=== PATIENT | female | born 1990 | race Caucasian/White ===

== ENCOUNTER 2016-04-26 16:00 | Emergency (ER) | payer SELFPAY ==
[2016-04-26 16:19] VITALS: BMI 42.0
--- NOTE | 2016-04-26 19:03 | EDPRACDOC ---
- General Information Chief Complaint: Vaginal Bleeding Stated Complaint: VAGINAL BLEEDIN PREG Time Seen by Provider: 04/26/16 18:52 Information Source: Patient Home Medications: Home Medications Clonazepam [Klonopin] 2 mg PO TID PRN 02/03/13 Meloxicam [Mobic] 7.5 mg PO DAILY PRN 04/26/16 Allergies/Adverse Reactions: Allergies Allergy/AdvReac Type Severity Reaction Status Date / Time Penicillins Allergy Severe Hives* Verified 04/26/16 16:19 tramadol Allergy Nausea/Vomi Verified 04/26/16 16:19 ting RANDEX COUGH MED Allergy Hives* Uncoded 04/26/16 16:19 - History of Present Illness Onset: YEST HPI: Pt 5 weeks preg c/o vaginal bleeding, abdo pain, N/V starting yesterday. U/S NEG for IUP. Pt has used same pad all day today. Rhogam shot with prior . Blood type o-. Denies fever, cp, sob. LMP Mar 23. Med hx = scoliosis. Surgical hx = kan. c section. Description: Reports: Spontaneous Location: Reports: Internal Vagina Relevant History: Reports: None : 2 Para: 1 Last Menstrual Period: Mar 23 Blood Type: O- Pain Severity: None Vaginal Bleeding Description: Reports: Bright Red # Pads Used in the Last 12/24 Hours: 1 Associated Signs & Symptoms: Reports: Abdominal Pain, Nausea, Vomiting, Vaginal Bleeding ED Past Medical History - History Reviewed Yes Nurses notes reviewed and agree except as marked - Patient Medical History Psychological History: Denies: Depression Surgical History: Reports: Cholecystectomy - Social Medical History Smoking Status: Never smoker EDM Review of Systems - Review of Systems ROS Negative Except as Marked: Yes All systems reviewed and were negative except as marked Gastrointestinal: Nausea, Pain, Vomiting Genitourinary: , Vaginal Bleeding - Physical Exam Constitutional: No apparent distress, Alert Oriented to: Time, Person, Place Last recorded Vital Signs: Last Vital Signs Temp 98.8 F 04/26/16 16:19 Pulse 128 H 04/26/16 16:19 Resp 18 04/26/16 16:19 BP 140/64 04/26/16 16:19 Pulse Ox 97 04/26/16 16:19 Oxygen Pulse Oxygen Saturation 97 O2 Device Oxygen Flow Rate Fraction of Inspired Oxygen ( FIO2) - HEENT Head: Normal Eye Exam: negative: Conjunctival Injection, Scleral Icterus Oropharynx: negative: Drooling TMJ: Normal Nose: No Symptoms Reported Neck: Normal - Respiratory/Cardiovascular Respiratory: Normal - CTA Cardiovascular: Normal - GI Auscultation: Normal Palpation: Normal Tenderness: Mild, Epigastric - Musculoskeletal Back: Normal Extremities: Normal - Integumentary Skin: Normal - Neurologic Mood Description: Normal Thought: Coherent ED Vaginal Exam External: Normal Vaginal Exam: Blood Vaginal Lesions: None Vaginal Discharge: None Cervix: Blood. negative: Tissue, Tenderness, Open Uterus: Normal size Adnexa: Right, Tenderness - Re-evaluation Re-evaluation 1 Re-evaluation Time: 19:06 (no complaints at this time) - Results 04/26/16 18:55 Decision Time to Discharge: 20:07 - Departure Disposition: Home Condition: Stable Final Diagnosis: Complete Instructions: Dysfunctional Uterine Bleeding (ED) Education/Counseling Given To: Patient, Family Member Education/Counseling Given Regarding: Diagnosis, Treatment, Prognosis, Follow Up Referrals: Johan Gutierrez MD [Primary Care Provider] - One Week Lilliana Pelayo MD [Staff Physician] - One Week Additional Instructions: FOLLOW UP WITH FORMAL WAITER/WAITRESS AND PRIMARY CARE. TAKE MOTRIN FOR PAIN. RETURN TO ED FOR ANY NEW OR WORSENING SYMPTOMS.
[2016-04-26 19:16] LABS: MPV 8.5 fL (7.4-10.4)
[2016-04-26] MEDS ORDERED: RHo(D) IMMUNE GLOBULIN (HUMAN) 300 MCG SYRINGE IM ONE (19:49)
[2016-04-26 20:48] LABS: AMORPHOUS 1+; LEUKOCYTES/URINE NEG (NEGATIVE); NITRITE/URINE NEG (NEGATIVE); URINE OCCULT BLOOD 1+ (NEG/TRACE)
[2016-04-26 23:18] VITALS: BP 114/60; PULSE 118; TEMP 99.8
[2016-04-30 05:41] LABS: CHLAMY BY NUCLEIC ACID AMP Negative (Negative)
[2016-04-30 06:23] LABS: GC BY NUCLEIC ACID AMP Negative (Negative)
== END 2016-04-26 23:20 | disposition home or self-care (01) ==
LOC: EEVIPCON 16:00 → ED 16:00
DX: O03.9 Complete or unspecified spontaneous abortion without complication (principal)
CPT/HCPCS: 36415; 81001; 84702; 85027; 85461; 86850; 86870; 86900; 86901; 87210; 87220; 87491; 87591; 96372; 99283; J2790